=== PATIENT | female | born 1940 | race Caucasian/White ===

== ENCOUNTER 2017-09-28 13:09 | Emergency (ER) | payer MEDICARE ==
[2017-09-28] MEDS ORDERED: Zithromax 500 MG/ 250 ML NaCl Premix 500 MG/250 ML IVPB IV STA (13:35)
--- NOTE | 2017-09-28 13:35 | ERPHSYRPT ---
- History of Present Illness Time Seen by Provider: 09/28/17 13:15 Source: patient Exam Limitations: no limitations Patient Subjective Stated Complaint: Pt states "I have been coughing since last and traveling and now I am having body aches, coughing up green stuff and I feel like crap." Triage Nursing Assessment: Pt alert and oriented X 3, skin pwd. PT ambulates with an upright steady gait, able to speak in clear full sentences. PT coughing intermittantly. Physician History: FOR THE PAST 5 DAYS PT HAS HAD BODY ACHES, SHORTNESS OF AIR, SORE THROAT AND CHEST CONGESTION; FOR THE PAST 4 DAYS COUGH PRODUCTIVE OF GREEN PHLEGM; TODAY DIARRHEA X1 WITHOUT BLOOD. Allergies/Adverse Reactions: Penicillins Allergy (Intermediate, Unverified 04/30/12 03:44) Hives Sulfa (Sulfonamide Antibiotics) [Sulfa(Sulfonamide Antibiotics)] Allergy ( Intermediate, Unverified 04/30/12 03:45) Hives cephalexin monohydrate [From Keflex] Allergy (Mild, Unverified 04/30/12 03:46) Hives levofloxacin [From Levaquin] Allergy (Mild, Unverified 04/30/12 03:47) Hives Home Medications: Atorvastatin Calcium [Atorvastatin Calcium] 20 mg PO DAILY 09/28/17 [History] Fluticasone/Vilanterol [Breo Ellipta 200-25 Mcg INH] 1 inh IH DAILY 09/28/17 [ History] Meloxicam [Meloxicam] 15 mg PO DAILY 09/28/17 [History] Paroxetine HCl [Paroxetine HCl] 20 mg PO DAILY 09/28/17 [History] Hx Tetanus, Diphtheria Vaccination/Date Given: No Hx Influenza Vaccination/Date Given: Yes Hx Pneumococcal Vaccination/Date Given: No Immunizations Up to Date: Yes - Review of Systems Constitutional: No Fever, No Chills Ears, Nose, & Throat: Throat Pain Respiratory: Cough, Dyspnea, Other (CHEST CONGESTION) Abdominal/Gastrointestinal: Diarrhea, No Vomiting Musculoskeletal: Myalgias Endocrine: No Excessive Sweating All Other Systems: Reviewed and Negative - Past Medical History Pertinent Past Medical History: Yes Neurological History: No Pertinent History ENT History: Cataracts Cardiac History: Arrhythmia, Other Respiratory History: No Pertinent History Endocrine Medical History: No Pertinent History Musculoskeletal History: No Pertinent History GI Medical History: No Pertinent History History: No Pertinent History Psycho-Social History: No Pertinent History Female Reproductive Disorders: No Pertinent History Other Medical History: arthritis - Past Surgical History Past Surgical History: Yes Neuro Surgical History: No Pertinent History Cardiac: No Pertinent History Respiratory: No Pertinent History Gastrointestinal: Appendectomy Musculoskeletal: Orthopedic Surgery Female Surgical History: Hysterectomy Other Surgical History: pacemaker, shoulder, bilat knee - Social History Smoking Status: Former smoker Exposure to second hand smoke: No Drug Use: none Patient Lives Alone: No - Female History Hx Last Menstrual Period: none Hx Now: No - Nursing Vital Signs Nursing Vital Signs: Initial Vital Signs Temperature 100.1 F 09/28/17 13:15 Pulse Rate 120 H 09/28/17 13:15 Respiratory Rate 20 09/28/17 13:15 Blood Pressure 140/84 09/28/17 13:15 O2 Sat by Pulse Oximetry 93 L 09/28/17 13:15 Pain Scale Pain Intensity 4 - Physical Exam General Appearance: alert Eye Exam: PERRL/EOMI Ears, Nose, Throat Exam: TMs normal, dry mucous membranes, pharyngeal erythema Neck Exam: normal inspection Respiratory Exam: wheezing (MINIMAL EXPIRATORY WHEEZING OVER POSTERIOR BASES.) Cardiovascular Exam: normal heart sounds Gastrointestinal/Abdomen Exam: soft, normal bowel sounds Back Exam: normal range of motion Extremity Exam: normal inspection, No pedal edema Neurologic Exam: alert, cooperative Skin Exam: warm, dry SpO2 Interpretation: normal SpO2: 94 Oxygen Delivery: Room Air - Course Nursing assessment & vital signs reviewed: Yes EKG Interpreted by Me: RATE (137), A-fib, NORMAL AXIS, Non-specific ST Changes - Radiology Exams Chest X-ray Interpretation: Interpreted by me (INCREASED BRONCHOVASCULAR MARKINGS; COPD.) Ordered Tests: Active Orders 24 hr Category Date Time Status Special Deputy Sheriff STAT Care 09/28/17 13:32 Active EKG-ER Only STAT Care 09/28/17 13:31 Active IV Insertion STAT Care 09/28/17 13:31 Active Oxygen-ED Only NASAL CANNULA 2 lpm Care 09/28/17 13:31 Active Pulse Oximetry (ED) STAT Care 09/28/17 13:31 Active CHEST 2 VIEWS (PA AND LAT) Stat Exams 09/28/17 13:31 Taken AMYLASE Stat Lab 09/28/17 14:00 Completed BLOOD CULTURE Stat Lab 09/28/17 14:00 Received CBC W DIFF Stat Lab 09/28/17 14:00 Completed CMP Stat Lab 09/28/17 14:00 Completed CULTURE, THROAT Stat Lab 09/28/17 14:00 Received CULTURE,SPUTUM Stat Lab 09/28/17 14:15 Received CULTURE,URINE Stat Lab 09/28/17 14:10 Received LIPASE Stat Lab 09/28/17 14:00 Completed MAGNESIUM Stat Lab 09/28/17 14:00 Completed [place] Screen Stat Lab 09/28/17 14:00 Completed NT PRO BNP Stat Lab 09/28/17 14:00 Completed PROTIME WITH INR Stat Lab 09/28/17 14:00 Completed PTT Stat Lab 09/28/17 14:00 Completed STREP SCREEN-BETA A Stat Lab 09/28/17 14:00 Completed TROPONIN Q3H Lab 09/28/17 14:00 Completed TROPONIN Q3H Lab 09/28/17 16:45 Ordered TROPONIN Q3H Lab 09/28/17 19:45 Ordered TROPONIN Q3H Lab 09/28/17 22:45 Ordered TROPONIN Q3H Lab 09/29/17 01:45 Ordered UA W/ MICROSCOPIC Stat Lab 09/28/17 14:10 Completed Medication Summary Generic Name Dose Route Start Last Admin Trade Name Freq PRN Reason Stop Dose Admin Sodium Chloride 1,000 mls @ 100 mls/hr 09/28/17 13:45 09/28/17 14:02 Sodium Chloride 0.9% 1000 Ml IV 10/28/17 13:44 100 mls/hr .Q10H CLOTILDE Administration Discontinued Medications Generic Name Dose Route Start Last Admin Trade Name Freq PRN Reason Stop Dose Admin Azithromycin 500 mg in 250 mls @ 250 mls/hr 09/28/17 13:35 09/28/17 14:02 Zithromax 500 Mg/ 250 Ml Nacl Premix IV 09/28/17 14:34 250 mls/hr STAT STA Administration Azithromycin Confirm 09/28/17 13:38 Zithromax 500 Mg/ 250 Ml Nacl Premix Administered 09/28/17 13:39 Dose 500 mg in 250 mls @ ud IV .STK-MED ONE Sodium Chloride 1,000 mls @ 999 mls/hr 09/28/17 13:56 09/28/17 14:05 Sodium Chloride 0.9% 1000 Ml IV 09/28/17 14:56 999 mls/hr .Q1H1M STA Administration Lab/Rad Data: Laboratory Result Diagrams 09/28/17 14:00 09/28/17 14:00 Laboratory Results 09/28/17 09/28/17 09/28/17 Range/Units 14:10 14:00 14:00 WBC (4.0-10.5) K/mm3 RBC (4.1-5.4) M/mm3 Hgb (12.0-16.0) gm/dl Hct (35-47) % MCV (78-100) fl MCH (26-32) pg MCHC (32-36) g/dl RDW (11.5-14.0) % Plt Count (150-450) K/mm3 MPV (6-9.5) fl Gran % (36.0-66.0) % Lymphocytes % (24.0-44.0) % Monocytes % (0.0-12.0) % Eosinophils % (0.00-5.0) % Basophils % (0.0-0.4) % Basophils # (0-0.4) INR (0.8-3.0) APTT (25.3-37.0) SECONDS Sodium (136-145) mEq/L Potassium (3.5-5.1) mEq/L Chloride (98-107) mEq/L Carbon Dioxide (21-32) mEq/L Anion Gap (5-15) MEQ/L BUN (9-20) mg/dL Creatinine (0.55-1.30) mg/dl Estimated GFR ML/MIN Glucose (70-110) MG/DL Calcium (8.5-10.1) mg/dL Magnesium (1.8-2.4) mg/dL Total Bilirubin (0.2-1.0) mg/dL AST (15-37) U/L ALT (12-78) U/L Alkaline Phosphatase (46-116) U/L Troponin I (0.000-0.056) ng/ml NT-Pro-B Natriuret Pep (0-450) pg/ml Serum Total Protein (6.4-8.2) gm/dL Albumin (3.4-5.0) g/dL Amylase (25-115) U/L Lipase (73-393) U/L Ur Collection Type VOID Urine Color YELLOW (YELLOW) Urine Appearance CLEAR (CLEAR) Urine pH 5.0 (5-6) Ur Specific Fischer 1.015 (1.005-1.025) Urine Protein 100 (Negative) Urine Ketones NEGATIVE (NEGATIVE) Urine Blood 50 (0-5) Luis/ul Urine Nitrite NEGATIVE (NEGATIVE) Urine Bilirubin NEGATIVE (NEGATIVE) Urine Urobilinogen NORMAL (0-1) mg/dL Ur Leukocyte Esterase TRACE (NEGATIVE) Urine Microscopic RBC 2-5 (0-2) /HPF Urine Microscopic WBC 2-5 (0-5) /HPF Ur Epithelial Cells FEW (FEW) /HPF Urine Bacteria FEW (NEGATIVE) /HPF Urine Culture Reflexed YES (NO) Urine Glucose NEGATIVE (NEGATIVE) mg/dL Monoscreen NEGATIVE (Negative) Influenza Type A Ag NEGATIVE (NEGATIVE) Influenza Type B Ag NEGATIVE (NEGATIVE) RSV (PCR) NEGATIVE (Negative) Streptococcus Screen (Negative) Slides for Path Review Specimen Received 09/28/17 1410 09/28/17 09/28/17 09/28/17 Range/Units 14:00 14:00 14:00 WBC (4.0-10.5) K/mm3 RBC (4.1-5.4) M/mm3 Hgb (12.0-16.0) gm/dl Hct (35-47) % MCV (78-100) fl MCH (26-32) pg MCHC (32-36) g/dl RDW (11.5-14.0) % Plt Count (150-450) K/mm3 MPV (6-9.5) fl Gran % (36.0-66.0) % Lymphocytes % (24.0-44.0) % Monocytes % (0.0-12.0) % Eosinophils % (0.00-5.0) % Basophils % (0.0-0.4) % Basophils # (0-0.4) INR 1.03 (0.8-3.0) APTT 32.7 (25.3-37.0) SECONDS Sodium (136-145) mEq/L Potassium (3.5-5.1) mEq/L Chloride (98-107) mEq/L Carbon Dioxide (21-32) mEq/L Anion Gap (5-15) MEQ/L BUN (9-20) mg/dL Creatinine (0.55-1.30) mg/dl Estimated GFR ML/MIN Glucose (70-110) MG/DL Calcium (8.5-10.1) mg/dL Magnesium (1.8-2.4) mg/dL Total Bilirubin (0.2-1.0) mg/dL AST (15-37) U/L ALT (12-78) U/L Alkaline Phosphatase (46-116) U/L Troponin I < 0.017 (0.000-0.056) ng/ml NT-Pro-B Natriuret Pep (0-450) pg/ml Serum Total Protein (6.4-8.2) gm/dL Albumin (3.4-5.0) g/dL Amylase (25-115) U/L Lipase (73-393) U/L Ur Collection Type Urine Color (YELLOW) Urine Appearance (CLEAR) Urine pH (5-6) Ur Specific Fischer (1.005-1.025) Urine Protein (Negative) Urine Ketones (NEGATIVE) Urine Blood (0-5) Luis/ul Urine Nitrite (NEGATIVE) Urine Bilirubin (NEGATIVE) Urine Urobilinogen (0-1) mg/dL Ur Leukocyte Esterase (NEGATIVE) Urine Microscopic RBC (0-2) /HPF Urine Microscopic WBC (0-5) /HPF Ur Epithelial Cells (FEW) /HPF Urine Bacteria (NEGATIVE) /HPF Urine Culture Reflexed (NO) Urine Glucose (NEGATIVE) mg/dL Monoscreen (Negative) Influenza Type A Ag (NEGATIVE) Influenza Type B Ag (NEGATIVE) RSV (PCR) (Negative) Streptococcus Screen NEGATIVE (Negative) Slides for Path Review Specimen Received 09/28/17 09/28/17 Range/Units 14:00 14:00 WBC 3.9 L (4.0-10.5) K/mm3 RBC 4.48 (4.1-5.4) M/mm3 Hgb 13.5 (12.0-16.0) gm/dl Hct 41.4 (35-47) % MCV 92.4 (78-100) fl MCH 30.1 (26-32) pg MCHC 32.6 (32-36) g/dl RDW 12.8 (11.5-14.0) % Plt Count 90 L (150-450) K/mm3 MPV 9.7 H (6-9.5) fl Gran % 51.1 (36.0-66.0) % Lymphocytes % 34.5 (24.0-44.0) % Monocytes % 13.8 H (0.0-12.0) % Eosinophils % 0.3 (0.00-5.0) % Basophils % 0.3 (0.0-0.4) % Basophils # 0.01 (0-0.4) INR (0.8-3.0) APTT (25.3-37.0) SECONDS Sodium 137 (136-145) mEq/L Potassium 4.0 (3.5-5.1) mEq/L Chloride 101 (98-107) mEq/L Carbon Dioxide 22.1 (21-32) mEq/L Anion Gap 17.8 H (5-15) MEQ/L BUN 17 (9-20) mg/dL Creatinine 1.21 (0.55-1.30) mg/dl Estimated GFR 46 ML/MIN Glucose 117 H (70-110) MG/DL Calcium 8.4 L (8.5-10.1) mg/dL Magnesium 1.9 (1.8-2.4) mg/dL Total Bilirubin 0.50 (0.2-1.0) mg/dL AST 45 H (15-37) U/L ALT 36 (12-78) U/L Alkaline Phosphatase 87 (46-116) U/L Troponin I (0.000-0.056) ng/ml NT-Pro-B Natriuret Pep 677 H (0-450) pg/ml Serum Total Protein 7.1 (6.4-8.2) gm/dL Albumin 3.8 (3.4-5.0) g/dL Amylase 42 (25-115) U/L Lipase 162 (73-393) U/L Ur Collection Type Urine Color (YELLOW) Urine Appearance (CLEAR) Urine pH (5-6) Ur Specific Fischer (1.005-1.025) Urine Protein (Negative) Urine Ketones (NEGATIVE) Urine Blood (0-5) Luis/ul Urine Nitrite (NEGATIVE) Urine Bilirubin (NEGATIVE) Urine Urobilinogen (0-1) mg/dL Ur Leukocyte Esterase (NEGATIVE) Urine Microscopic RBC (0-2) /HPF Urine Microscopic WBC (0-5) /HPF Ur Epithelial Cells (FEW) /HPF Urine Bacteria (NEGATIVE) /HPF Urine Culture Reflexed (NO) Urine Glucose (NEGATIVE) mg/dL Monoscreen (Negative) Influenza Type A Ag (NEGATIVE) Influenza Type B Ag (NEGATIVE) RSV (PCR) (Negative) Streptococcus Screen (Negative) Slides for Path Review YES Specimen Received - Progress Discussed with Dr.: Other (SPOKE WITH DR RETANA(HOSPITALIST)([id number]) WHO ACCEPTED PT FOR TRANSF[place] [facility].) - Departure Time of Disposition: 15:29 Departure Disposition: [place] Clinical Impression: A. FIB WITH RVR, BRONCHITIS, PHARYNGITIS, DYSPNEA, DIARRHEA, ARTHRITIS Condition: Stable Critical Care Time: No Referrals: JOCELYNE WILKINSON MD [Primary Care Provider] -
[2017-09-28] MEDS ORDERED: Sodium Chloride 0.9% 1000 ML 1,000 ML ONE ×2 (13:38→15:04)
[2017-09-28] MEDS ORDERED: Zithromax 500 MG/ 250 ML NaCl Premix 500 MG/250 ML IVPB IV ONE (13:38)
[2017-09-28] MEDS ORDERED: Sodium Chloride 0.9% 1000 ML 1,000 ML IV SCH (13:45)
[2017-09-28] MEDS ORDERED: Sodium Chloride 0.9% 1000 ML 1,000 ML IV STA (13:56)
[2017-09-28 14:19] LABS: BASOPHIL % 0.3 % (0.0-0.4); Basophil (Absolute #) 0.01 (0-0.4); Eosinophil % 0.3 % (0.00-5.0); Eosinophil (Absolute #) 0.01 (0-0.5); Granulocyte Absolute (ANC) 1.97 (1.4-6.9); Granulocytes % 51.1 % (36.0-66.0); Hematocrit 41.4 % (35-47); Hemoglobin 13.5 gm/dl (12.0-16.0); Lymphocyte (Absolute #) 1.33 (1.0-4.6); Lymphocytes % 34.5 % (24.0-44.0); Mean Cell Volume 92.4 fl (78-100); Mean Corpuscular Hemoglobin 30.1 pg (26-32); Mean Corpuscular Hgb Concent. 32.6 g/dl (32-36); Mean Platelet Volume 9.7 fl (6-9.5); Monocyte (Absolute #) 0.53 (0.0-1.3); Monocytes % 13.8 % (0.0-12.0); Platelet Count 90 K/mm3 (150-450); Red Blood Count 4.48 M/mm3 (4.1-5.4); Red Cell Distribution Width 12.8 % (11.5-14.0); White Blood Count 3.9 K/mm3 (4.0-10.5)
[2017-09-28 14:45] LABS: Appearance CLEAR (CLEAR); Bilirubin NEGATIVE (NEGATIVE); Blood 50 Ery/ul (0-5); Glucose NEGATIVE (NEGATIVE); Ketones NEGATIVE (NEGATIVE); Leukocyte Esterase TRACE (NEGATIVE); Nitrite NEGATIVE (NEGATIVE); Protein,Urine Dip 100 (Negative); Specific Gravity 1.015 (1.005-1.025); Urobilinogen NORMAL mg/dL (0-1)
[2017-09-28 14:51] LABS: Bacteria FEW /HPF (NEGATIVE); Epithelial Cells FEW /HPF (FEW)
[2017-09-28 15:13] VITALS: O2SAT 94
[2017-09-28 15:15] LABS: ALBUMIN 3.8 g/dL (3.4-5.0); ANION GAP 17.8 MEQ/L (5-15); BILIRUBIN,TOTAL 0.5 mg/dL (0.2-1.0); Calcium 8.4 mg/dL (8.5-10.1); Carbon Dioxide 22.1 mEq/L (21-32); Creatinine 1 1.21 mg/dl (0.55-1.30); MAGNESIUM 1.9 mg/dL (1.8-2.4); Total Protein 7.1 gm/dL (6.4-8.2)
[2017-09-28 15:17] LABS: Slide Review 1 YES
[2017-09-28 15:18] LABS: INR 1.03 (0.8-3.0)
[2017-09-28 15:20] LABS: PTT 32.7 SECONDS (25.3-37.0)
[2017-09-28 15:25] LABS: INFLUENZA A NEGATIVE (NEGATIVE); INFLUENZA B NEGATIVE (NEGATIVE); RESPIRATORY SYNCTIAL VIRUS NEGATIVE (Negative)
[2017-09-28 17:14] VITALS: BP 145/105; PULSE 94
--- NOTE | 2017-09-28 21:19 | XRAY ---
Indication: Cough. Flu symptoms. Comparison: None PA/lateral chest hyperinflated with chronic interstitial lung markings. No focal infiltrate, consolidation, or large effusion. Heart is not enlarged. Vascularity normal. Left sided dual lead pacemaker. Bony thorax intact with age-related osteopenia, mild degenerative changes, and right shoulder arthroplasty. Impression: Nonacute hyperinflated chest with chronic features.
== END 2017-09-28 17:14 | disposition short-term general hospital (02) ==
LOC: ED 13:09
DX: I48.91 Unspecified atrial fibrillation (principal); J40 Bronchitis, not specified as acute or chronic; J02.9 Acute pharyngitis, unspecified; R06.00 Dyspnea, unspecified; R19.7 Diarrhea, unspecified; M19.90 Unspecified osteoarthritis, unspecified site; Z87.891 Personal history of nicotine dependence; Z79.899 Other long term (current) drug therapy
CPT/HCPCS: 36000; 36415; 71046; 80053; 81000; 82150; 83690; 83735; 83880; 84484; 85025; 85610; 85730; 86308; 87040; 87070; 87077; 87086; 87430; 87631; 93005; 93041; 96360; 96361; 96365; 99285; J0456